=== PATIENT | male | born 1960 | race Caucasian/White ===

== ENCOUNTER → 2018-09-13 | Outpatient (CLI) | payer OTHER ==
[2018-09-13 07:46] LABS: ABSOLUTE BASOPHILS # (AUTO) 0.1 10^3/uL (0.0-0.2); ABSOLUTE EOSINOPHILS # (AUTO) 0.4 10^3/uL (0.0-0.6); ABSOLUTE LYMPHOCYTES (AUTO) 1.3 10^3/uL (0.5-4.7); ABSOLUTE MONOCYTES (AUTO) 0.9 10^3/uL (0.1-1.4); ABSOLUTE NEUT (AUTO) 3.8 10^3/uL (1.7-8.2); BASOPHILS % (AUTO) 1.3 % (0-2); EOSINOPHILS % (AUTO) 5.5 % (0-6); HEMATOCRIT 50.4 % (37.9-51.0); HEMOGLOBIN 17.1 g/dL (13.5-17.0); LYMPHOCYTES % (AUTO) 19.5 % (13-45); MEAN CORPUSCULAR HEMOGLOBIN 31.7 pg (27.0-33.4); MEAN CORPUSCULAR HGB CONC 33.9 g/dL (32.0-36.0); MEAN CORPUSCULAR VOLUME 93 fl (80-97); MONOCYTES % (AUTO) 14.2 % (3-13); PLATELET COUNT 245 10^3/uL (150-450); RED CELL DISTRIBUTION WIDTH 13.2 % (11.5-14.0); SEGMENTED NEUTROPHILS % (AUTO) 59.5 % (42-78); TOTAL CELLS COUNTED % (AUTO) 100 %; WHITE BLOOD COUNT 6.4 10^3/uL (4.0-10.5)
[2018-09-13 08:17] LABS: ALANINE AMINOTRANSFERASE 34 U/L (21-72); ALBUMIN 3.9 g/dL (3.5-5.0); ALKALINE PHOSPHATASE 109 U/L (38-126); ANION GAP 6 (5-19); ASPARTATE AMINO TRANSFERASE 21 U/L (17-59); BILIRUBIN,DIRECT 0.6 mg/dL (0.0-0.4); BILIRUBIN,TOTAL 1.2 mg/dL (0.2-1.3); BLOOD UREA NITROGEN 16 mg/dL (7-20); CALCIUM 9.9 mg/dL (8.4-10.2); CARBON DIOXIDE 27 mmol/L (22-30); CHLORIDE 106 mmol/L (98-107); CHOLESTEROL 180.37 mg/dL (0-200); GLUCOSE 232 mg/dL (75-110); POTASSIUM 5.4 mmol/L (3.6-5.0); SODIUM 139.3 mmol/L (137-145); TOTAL PROTEIN 6.7 g/dL (6.3-8.2); TRIGLYCERIDES 126 mg/dL (<150)
[2018-09-13 08:28] LABS: DIRECT LDL 140 mg/dL (<100)
== END ==
LOC: LAB 07:30
PROVIDERS: ATTEND Internal Medicine
DX: I12.9 Hypertensive chronic kidney disease with stage 1 through stage 4 chronic kidney disease, or unspecified chronic kidney disease (principal); N18.2 Chronic kidney disease, stage 2 (mild); E78.5 Hyperlipidemia, unspecified; R73.9 Hyperglycemia, unspecified; N40.0 Benign prostatic hyperplasia without lower urinary tract symptoms; K21.0 Gastro-esophageal reflux disease with esophagitis
CPT/HCPCS: 36415; 80053; 80061; 83036; 83525; 84443; 85025

== ENCOUNTER → 2018-12-15 | Outpatient (CLI) | payer OTHER ==
[2018-12-15 08:30] LABS: ANION GAP 10 (5-19); BLOOD UREA NITROGEN 15 mg/dL (7-20); CALCIUM 9.4 mg/dL (8.4-10.2); CARBON DIOXIDE 25 mmol/L (22-30); CHLORIDE 106 mmol/L (98-107); GLUCOSE 123 mg/dL (75-110); POTASSIUM 4.7 mmol/L (3.6-5.0); SODIUM 140.5 mmol/L (137-145)
== END ==
LOC: OD 07:25
PROVIDERS: ATTEND Internal Medicine
DX: E11.22 Type 2 diabetes mellitus with diabetic chronic kidney disease (principal); N18.2 Chronic kidney disease, stage 2 (mild)
CPT/HCPCS: 36415; 80048

== ENCOUNTER 2020-05-14 10:02 | Day surgery (SDC) | payer OTHER ==
[~2020-05-14 10:02] MED LIST: LIDOCAINE 0.5% INJ-PF (5 MG/ML) 50 ML SDV INFIL PRN; PROPOFOL INJ 200 MG/20 ML VIAL IV ONE; RINGERS SOLUTION,LACTATED 1,000 ML IV PRN
--- NOTE | 2020-05-14 11:44 | Operative Report ---
Nonrecallable Operative Report DATE OF SURGERY: 05/14/20 PREOPERATIVE DIAGNOSIS: 1. Screening for malignancy. 2. Family history of colon cancer. POSTOPERATIVE DIAGNOSIS: Small colon polyp at 50 cm OPERATION: 1. Colonoscopy to the cecum. 2. Hot biopsy of small colon polyp at 50 cm. SURGEON: RONALD WEIR ANESTHESIA: LMAC TISSUE REMOVED OR ALTERED: Hot biopsy of colon polyp at 50 cm COMPLICATIONS: None apparent ESTIMATED BLOOD LOSS: Minimal PROCEDURE: Procedure in detail: After informed consent was obtained, the patient was brought to the operating room and laid in the left lateral decubitus position. The endoscope was inserted into the rectum. It was passed up the rectum, sigmoid colon, descending colon, across the transverse colon, down the ascending colon, and into the cecum. The ileocecal valve and appendiceal orifice were identified. The scope was then withdrawn, circumferentially noting the mucosa. The prep was good. The scope was withdrawn past the ascending colon, transverse colon, and into the descending colon. At approximately 50 cm a small polyp was identified, and removed in its entirety via hot biopsy forcep. The scope was withdrawn down the remainder of the descending colon, sigmoid colon, and into the rectum. A retroflexion maneuver was performed in the rectum, noting very small internal hemorrhoids, that were nonbleeding. The scope was straightened, air was suctioned from the rectum, the scope was removed, and the procedure was concluded. All sponge, instrument, and needle counts were correct. Condition: Stable.
--- NOTE | 2020-05-14 11:45 | Discharge Summary ---
Discharge Summary (SDC) - Discharge Final Diagnosis: Small colon polyp at 50 cm Date of Surgery: 05/14/20 Discharge Date: 05/14/20 Forms: EU Anesthesia D/C Instructions, Discharge POC-Surgical Service Treatment or Instructions: Discharge home. Diet as tolerated. Activity: Nonstrenuous. Follow-up with [facility] in 7 to 10 days. Referrals: RONALD WEIR MD [ACTIVE STAFF] - Discharge Diet: As Tolerated Respiratory Treatments at Home: Deep Breathing/Coughing Discharge Activity: Activity As Tolerated, Balance Activity w/Rest, No Driving Home Care Assistance: None Needed Report the Following to Your Physician Immediately: Shortness of Breath, V omiting, Increase in Pain, Fever over 101 Degrees, Unusual Bleeding, Large Clots, IV Site Infection Signs
[2020-05-14 11:46] VITALS: BP 119/87
== END 2020-05-14 12:00 | disposition home or self-care (01) ==
LOC: END 10:02
PROVIDERS: ATTEND Surgery
DX: Z12.11 Encounter for screening for malignant neoplasm of colon (principal); D12.6 Benign neoplasm of colon, unspecified; R73.03 Prediabetes; I10 Essential (primary) hypertension; Z20.828 Contact with and (suspected) exposure to other viral communicable diseases; Z87.891 Personal history of nicotine dependence; Z79.899 Other long term (current) drug therapy; Z79.84 Long term (current) use of oral hypoglycemic drugs; Z80.0 Family history of malignant neoplasm of digestive organs
CPT/HCPCS: 45384; 82962; 87635; 88305 ×2; J2704; C9803